=== PATIENT | male | born 1940 | race Caucasian/White ===

== ENCOUNTER 2017-11-05 13:30 | Outpatient (RCR) | payer MEDICARE, BC | END 2017-11-22 | disposition home or self-care (01) | LOC: WSPT | DX: M46.96 Unspecified inflammatory spondylopathy, lumbar region (principal); E11.9 Type 2 diabetes mellitus without complications; I10 Essential (primary) hypertension | CPT/HCPCS: G8978-GP; G8979-GP ==

== ENCOUNTER 2018-05-25 14:00 | Outpatient (RCR) | payer MEDICARE, BC ==
[~2018-05-25 14:00] MED LIST: ALTACE 10MG TAB10 MG PO; AMOXICILLIN 8751 TAB PO; ASPIRIN 81M81 MG/TA2 PO; BETAPACE 80MG80 MG PO; CARDIZEM CD 18180 MG PO; COMBIGAN 0.2%-0.5 ML OD; ELIQUIS 5MG PO; FLONASEALLERGY NS; HCTZ 25MG TAB25 MG PO; LIPITOR 40MG TA40 MG PO; XALATAN EYE DROPS OD
== END 2018-08-18 | disposition home or self-care (01) ==
LOC: WSPT
DX: M47.896 Other spondylosis, lumbar region (principal)
CPT/HCPCS: G8978-GP; G8979-GP

== ENCOUNTER 2019-03-12 00:38 | Emergency (ER) | payer MEDICARE, BC ==
[~2019-03-12] VITALS: Ht 185.4 cm; Wt 103.2 kg
[2019-03-12] MEDS ORDERED: HCTZ12.5TAB PO (01:14)
[2019-03-12] MEDS ORDERED: BETAPACE 80MG80 MG PO (01:14)
[2019-03-12] MEDS ORDERED: ALTACE 10MG TAB10 MG PO (01:16)
[2019-03-12 01:18] LABS: BASO # 0.1 (0.0-0.2); BASO % 0.8 % (0.0-2.0); EOS # 0.8 (0.0-0.7); EOS % 5.7 % (0-4.0); GRAN # 7.1 (1.4-6.5); GRAN % 54.3 % (42.2-75.2); HEMATOCRIT 44.1 % (42.0-52.0); HEMOGLOBIN 14.9 g/dl (13.5-18.0); LYMPH % 30.8 % (20.0-51.0); MEAN CELL VOLUME 93 fl (80.0-100.0); MEAN CORPUSCULAR HEMOGLOBIN 32 pg (27.0-31.0); MEAN CORPUSCULAR HGB CONC 34 g/dl (33.0-37.0); MEAN PLATELET VOLUME 9.1 fl (7.4-10.4); MONO % 7.7 % (1.7-9.3); PLATELET COUNT 461 K/mm3 (130-400); RED BLOOD COUNT 4.72 M/mm3 (4.20-5.60); REDCELL DISTRIBUTION WIDTH-CV 12.6 % (11.5-14.5)
[2019-03-12 01:24] LABS: INR 1.4 (0.8-3.0); PROTHROMBIN TIME 15.9 SECONDS (9.7-12.8)
[2019-03-12 01:29] LABS: ALANINE AMINOTRANSFERASE 17 U/L (21-72); ALBUMIN 3.8 gm/dL (3.5-5.0); ALKALINE PHOSPHATASE 89 U/L (50-136); ANION GAP 10 mmol/L (7-16); AST,SGOT 21 U/L (15-37); BILIRUBIN,TOTAL 0.9 mg/dL (0.0-1.0); BLOOD UREA NITROGEN 13 mg/dL (9-20); CALCIUM 9.1 mg/dL (8.4-10.2); CARBON DIOXIDE 28 mmol/L (22-30); CHLORIDE 94 mmol/L (98-107); CREATININE, serum 0.85 (0.66-1.25); GLUCOSE 115 mg/dL (74-106); POTASSIUM 4.9 mmol/L (3.4-5.0); SODIUM 132 mmol/L (137-145)
[2019-03-12 01:41] LABS: TROPONIN-I < 0.012 ng/mL (0.000-0.035)
[2019-03-12 02:15] LABS: COLLECTION METHOD CLEAN CATCH
[2019-03-12 02:22] LABS: MUCOUS Present /lpf; PH 5 (5-8); SQUAMOUS EPITHELIAL 0-2 /hpf; URINE APPEARANCE Clear; URINE BACTERIA None Seen /hpf; URINE BILIRUBIN Negative (NEGATIVE); URINE BLOOD Negative (NEGATIVE); URINE COLOR Yellow; URINE GLUCOSE Negative (NEGATIVE); URINE KETONE Negative (NEGATIVE); URINE LEUKOCYTE ESTERASE Negative (NEGATIVE); URINE NITRATE Negative (NEGATIVE); URINE PROTEIN(semi-quant) Negative (NEGATIVE); URINE RBC 0-2 /hpf
[2019-03-12 02:42] VITALS: TEMP 98.4
[2019-03-12 03:45] VITALS: BP 194/72; PULSE 51
== END 2019-03-12 03:57 | disposition home or self-care (01) ==
LOC: COL.ER 00:38
PROVIDERS: Emergency Medicine
DX: G45.9 Transient cerebral ischemic attack, unspecified (principal); I10 Essential (primary) hypertension; E11.9 Type 2 diabetes mellitus without complications; Z90.89 Acquired absence of other organs; Z90.49 Acquired absence of other specified parts of digestive tract; E78.5 Hyperlipidemia, unspecified; Z87.891 Personal history of nicotine dependence

== ENCOUNTER → 2019-03-15 | Outpatient (CLI) | payer MEDICARE, BC ==
[~2019-03-15] MED LIST changes: +HCTZ12.5TAB PO
== END ==
LOC: COL.VAS 15:09
DX: I65.23 Occlusion and stenosis of bilateral carotid arteries (principal); R41.3 Other amnesia; R41.0 Disorientation, unspecified